=== PATIENT | female | born 1945 | race Caucasian/White ===

== ENCOUNTER 2019-02-03 21:08 | Emergency (ER) | payer MEDICARE, BC ==
[2019-02-03 21:32] VITALS: BP 107/56
[2019-02-03] MEDS ORDERED: Ibuprofen TAB* 600 MG PO ONE (21:37)
[2019-02-03] MEDS ORDERED: diPHENhydraMINE PO* 25 MG PO ONE (21:38)
--- NOTE | 2019-02-03 21:40 | UC ---
Skin Complaint HPI - HPI Summary HPI Summary: c/o bee sting to her R foot/ankle that happened today at approx 1400. she states that area is swollen and warm to the touch. Denies any itchy throat or throat swelling. - History of Current Complaint Chief Complaint: UCSkin Time Seen by Provider: 02/03/19 21:23 Stated Complaint: RIGHT FOOT BEE STING Hx Obtained From: Patient ?: No Onset/Duration: Sudden Onset, Lasting Hours Skin Exposure Onset/Duration: Hours Ago Timing: Constant Onset Severity: Mild Current Severity: Moderate Pain Intensity: 6 Location: Discrete Character: Pain, Hives, Redness, Painful Aggravating Factor(s): Touch Alleviating Factor(s): Nothing Related History: Insect Bite/Sting - Allergy/Home Medications Allergies/Adverse Reactions: Allergies Allergy/AdvReac Type Severity Reaction Status Date / Time Adhesive Tape Allergy Rash Verified 02/03/19 21:32 PMH/Surg Hx/FS Hx/Imm Hx Previously Healthy: Yes - Surgical History Surgical History: Yes Surgery Procedure, Year, and Place: CARDIAC ABLATION. VAGINAL FISTULA - Family History Known Family History: Positive: Hypertension - Social History Alcohol Use: None Substance Use Type: None Smoking Status (MU): Never Smoked Tobacco Review of Systems All Other Systems Reviewed And Are Negative: Yes Skin: Positive: Other - redness ov ankle Musculoskeletal: Positive: Arthralgia, Edema Is Patient Immunocompromised?: No Physical Exam Triage Information Reviewed: Yes Appearance: Well-Appearing, Well-Nourished, Pain Distress Vital Signs: Initial Vital Signs Temp 98.9 F 02/03/19 21:28 Pulse 79 02/03/19 21:28 Resp 18 02/03/19 21:28 BP 107/56 02/03/19 21:28 Pulse Ox 98 02/03/19 21:28 Vital Signs Reviewed: Yes Eye Exam: Normal ENT Exam: Normal Dental Exam: Normal Neck exam: Normal Respiratory Exam: Normal Respiratory: Positive: Chest non-tender, Lungs clear, Normal breath sounds Cardiovascular Exam: Normal Cardiovascular: Positive: RRR, No Murmur, Pulses Normal Abdominal Exam: Normal Musculoskeletal: Positive: Strength Intact, Edema @ - edema of the medial ankle joint Neurological Exam: Normal Psychological Exam: Normal Skin: Positive: Other - erythema of the ankle Course/Dx - Course Course Of Treatment: hx obtained, exam performed ,meds reviewed and given, - Differential Diagnoses - Skin Complaint Differential Diagnoses: Allergic Reaction, Contact Dermatitis - Diagnoses Provider Diagnosis: Allergic reaction to bee sting Discharge ED - Sign-Out/Discharge Documenting (check all that apply): Patient Departure All imaging exams completed and their final reports reviewed: No Studies - Discharge Plan Condition: Stable Disposition: HOME Patient Education Materials: General Allergic Reaction (ED) Referrals: Rodrigo Turpin MD [Primary Care Provider] - Additional Instructions: 1. take the medication as prescribed. 2. If needed starta a daily antihistamine after the presnisone is finished. 3. elevate the foot at rest 4. use the cream for itching. 5. If you develop any increased redness or swelling over the next few days follow up. 6. If you develop any respiratory symtpoms follow up in the ER. - Billing Disposition and Condition Condition: STABLE Disposition: Home
[2019-02-03] MEDS ORDERED: predniSONE TAB* 20 MG PO ONE (21:45)
== END 2019-02-03 21:55 | disposition home or self-care (01) ==
LOC: UCCORT 21:08
DX: T63.441A Toxic effect of venom of bees, accidental (unintentional), initial encounter (principal); M79.89 Other specified soft tissue disorders; Y92.9 Unspecified place or not applicable; Z91.048 Other nonmedicinal substance allergy status
CPT/HCPCS: 99213; A9270-GY; G0463; J7512

== ENCOUNTER 2019-02-24 13:19 | Emergency (ER) | payer MEDICARE, BC ==
[2019-02-24] MEDS ORDERED: methylPREDNISolone 125 MG* 2 ML VIAL IV ONE (14:24)
--- OUTSIDE RECORDS SUMMARY | 2019-02-24 14:24 | XMS REPORT | Continuity of Care Document ---
:1945 External Reference #:[id number] Author Name Rodrigo Turpin MD (transmitted by agent of provider Jarrett Mcdonald) Address [address] [place] [address] Care Team Providers Name Role Phone Rodrigo Turpin MD - Family Care Team Information State Appellate Clerk Medicine Darrel Petty MD - Otolaryngology Care Team Information State Appellate Clerk Jorge Sullivan M.D. - Neurological Care Team Information State Appellate Clerk Surgery Problems Active Problems Provider Date Neck pain Onset: 07/11/2011 Strain of rotator cuff capsule Onset: 07/11/2011 Asthma without status asthmaticus Onset: 07/11/2011 Gastroesophageal reflux disease Onset: 07/11/2011 Tick bite FERNANDO Coronel Onset: 10/23/2018 Edema FERNANDO Coronel Onset: 10/23/2018 Social History Type Date Description Comments Sex Unknown ETOH Use Rarely consumes alcohol Tobacco Use Start: Unknown Patient has never smoked Recreational Drug Use Denies Drug Use Smoking Status Reviewed: 01/16/19 Patient has never smoked Exercise Type/Frequency Exercises regularly Allergies, Adverse Reactions, Alerts Active Allergies Reaction Severity Comments Date Codeine nightmares 12/12/2013 Cefprozil 06/01/2018 Medications Active Medications SIG Qnty Indications Ordering Date Provider Cyclobenzaprine HCL 1 by mouth 45tabs M54.2 Rodrigo 02/22/2019 5mg three times a MD Dyana Tablets day Naproxen 1 by mouth 30tabs M54.2 Rodrigo 02/22/2019 500mg Tablets twice a day MD Dyana Anusol-HC use after bm 30units K64.0 Rodrigo 02/21/2018 2.5% Cream and at at MD Dyana bedtime [facility] Rodrigo 12/07/2017 Capsules MD Dyana Lysine daily prn Rodrigo 11/01/2017 500mg Tablets MD Dyana Acidophilus daily Rodrigo 11/01/2017 Lactobacillus MD Dyana Capsules Calcium Magnesium 750 1 daily Rodrigo 11/01/2017 MD Dyana 300-300mg Tablets Bromelain Jorge Sullivan, 12/07/2016 250mg Capsules Rosalba Tart Kelsey Advanced Rodrigo 12/07/2016 MD Dyana Capsules Biotect Plus Rodrigo 12/07/2016 Capsules MD Dyana Proair HFA 2 puffs every 8.500units J45.909 Rodrigo 12/07/2016 108(90Base) 4 hours as MD Dyana mcg/Act Aerosol needed Potassium Rodrigo 12/07/2016 99mg Tablets MD Dyana Vitamin C 1 tab po qd Rodrigo 12/07/2015 500mg Tablets MD Dyana Vitamin D3 1 po qd Rodrigo 08/08/2012 400Unit MD Dyana Tablets Balanced B-50 Complex Rodrigo 08/08/2012 MD Dyana Capsules Beta Carotene Unknown 56691Lgie Capsules History Medications Doxycycline Hyclate 1 by mouth 30caps S10.86xA Rodrigo Turpin, 2018 - twice a day 11/28/2018 100mg Capsules Immunizations CPT Code Status Date Vaccine Lot # [id number] Given 12/07/2016 Zoster (Zostavax) 85589 Given 05/02/2016 Fluzone High Dose 88307 Given 03/26/2014 Fluzone High Dose 38869 Given 08/09/2013 Tdap - Tetanus/Diptheria/Acellular Pertussis 89821 Given 08/09/2013 Pneumococcal Conjugate Vaccine 13 Valent For Intramuscular Use 12001 Given 08/09/2013 Fluzone High Dose 81814 Given 08/08/2011 Influenza Virus 3Yrs & Over 16064 Given 02/15/2010 Influenza Virus 3Yrs & Over 08136 Given 06/02/2009 Administration Swine Flu Shot 06752 Given 04/10/2008 Pneumonia Vaccine 28006 Given 04/10/2008 Influenza Virus 3Yrs & Over 64207 Given 04/02/2002 Influenza Virus 3Yrs & Over 64722 Given 03/02/2000 Tetanus And Diptheria (Td) For Adult Use Preservative Free Vital Signs Date Vital Result Comment 02/22/2019 11:16am Weight 153.00 lb BP Systolic 118 mmHg BP Diastolic 70 mmHg 01/16/2019 4:46pm Height 60.5 inches 5'0.50" Weight 151.00 lb Heart Rate 70 /min BP Systolic 108 mmHg BP Diastolic 60 mmHg Respiratory Rate 16 /min O2 % BldC Oximetry 97 % room air BMI (Body Mass Index) 29.0 kg/m2 Results Description No Information Available Procedures Date Code Description Status 11/28/2018 34442 EKG Tracing & Interpretation Completed 08/01/2017 [id number] Mammogram Completed Medical Devices Description No Information Available Encounters Type Date Location Provider Dx Diagnosis Office Visit 11/28/2018 [facility] FERNANDO Coronel T63.451A Toxic effect of 1:00p venom of hornets, accidental, init R00.0 Tachycardia, unspecified F41.9 Anxiety disorder, unspecified Office Visit 11/05/2018 2:45p [facility] FERNANDO Coronel L03.115 Cellulitis of Care right lower limb S80.861A Insect bite (nonvenomous), right lower leg, init encntr Office Visit 10/23/2018 10:15a [facility] FERNANDO Coronel S10.86xA Insect bite of Care other specified part of neck, init encntr R60.0 Localized edema M79.641 Pain in right hand M79.642 Pain in left hand L03.818 Cellulitis of other sites Assessments Date Code Description Provider 02/22/2019 M54.2 Cervicalgia Rodrigo Turpin MD 01/16/2019 Z00.00 Encounter for general adult medical Rodrigo Turpin MD examination without abnormal findings 11/28/2018 T63.451A Toxic effect of venom of hornets, FERNANDO Coronel accidental (unintentional) 11/28/2018 R00.0 Tachycardia, unspecified FERNANDO Coronel 11/28/2018 F41.9 Anxiety disorder, unspecified FERNANDO Coronel 11/05/2018 L03.115 Cellulitis of right lower limb FERNANDO Coronel 11/05/2018 S80.861A Insect bite (nonvenomous), right lower [place], [place] leg, initial encounte 10/23/2018 S10.86xA Insect bite of other specified part of FERNANDO Coronel neck, initial encount 10/23/2018 R60.0 Localized edema FERNANDO Coronel 10/23/2018 M79.641 Pain in right hand FERNANDO Coronel 10/23/2018 M79.642 Pain in left hand FERNANDO Coronel 10/23/2018 L03.818 Cellulitis of other sites FERNANDO Coronel Plan of Treatment Future Appointment(s):03/07/2019 3:45 pm - Rodrigo Turpin MD at [facility]02/22/2019 - Rodrigo Turpin MDM54.2 CervicalgiaNew Medication: Cyclobenzaprine HCL 5 mg - 1 by mouth three times a dayNaproxen 500 mg - 1 by mouth twice a day Functional Status Description No Information Available Mental Status Description No Information Available Referrals Description No Information Available
[2019-02-24] MEDS ORDERED: DOXYcycline CAP(*) 100 MG PO ONE (14:29)
[2019-02-24] MEDS ORDERED: Acetaminophen TAB* 325 MG PO ONE (14:30)
[2019-02-24] MEDS ORDERED: Carboxymethylcellulose/Glyceri 10 ML OPHTH.GEL lubricant eye gel LEFT EYE ONE (14:43)
[2019-02-24 14:48] LABS: ABS Eosinophils 0.2 10^3/ul (0-0.6); ABS Lymphocytes 1.2 10^3/ul (1.0-4.8); ABS Monocytes 0.4 10^3/ul (0-0.8); ABS Neutrophils 2.3 10^3/ul (1.5-7.7); Eosinophil % 5.2 %; Hematocrit 39 % (35-47); Hemoglobin 13.6 g/dL (12.0-16.0); Lymphocyte % 28.8 %; Mean Corpuscular HGB Conc 35 g/dL (31-36); Mean Corpuscular Hemoglobin 32 pg (27-31); Mean Corpuscular Volume 91 fL (80-97); Mean Platelet Volume 6.8 fL (7.4-10.4); Nucleated Red Blood Cells % 0.1; Platelet Count 236 10^3/uL (150-450); Red Blood Count 4.31 10^6 /uL (3.70-4.87); Red Cell Distribution Width 14 % (10-15); White Blood Count 4.2 10^3/uL (3.5-10.8)
[2019-02-24 14:54] LABS: INR 0.96 (0.82-1.09)
--- NOTE | 2019-02-24 14:59 | ED ---
Neurological HPI - HPI Summary HPI Summary: The pt is a 74 yr old female presenting to [facility] via EMS c/o neurological deficits beginning 1100 this date. She notes that earlier this morning @ 1100 she was talking to her daughter over the phone when she began having trouble formulating some words. The pt also mentions that her words have been slurred since this morning and that when she attempted to drink water her left lip was crooked and some of the liquid spilled out of her mouth. In the room she mentions that she feels like her speech is back to normal and that she has no problem finding words. The pt mentions that she had her carotid arteries checked with an ultrasound about 2 [address] Dr. Vaca in [place]. She also believes that she was treated for lung disease in [place] 01/14. She rates her current pain severity due to her headache a 5/10. No aggravating or alleviating factors noted. She also reports some headache, right neck pain, tingling/numbness to the left side of her face and left arm, and seeing blackness in her field of view that does not last and that she can see through. 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 She has no hx of cold sores. Vital signs while in the room: HR:64, BP: 121/58, O2 Sat: 97 %. Allergies Allergy/AdvReac Type Severity Reaction Status Date / Time Adhesive Tape Allergy Rash Verified 02/03/19 21:32 Home Medications Medication Instructions Recorded Confirmed Type Ascorbic Acid TAB* [Vitamin C 500 mg PO DAILY 02/24/19 02/24/19 History TAB*] Beta-Carotene [Beta Carotene] 25,000 unit PO DAILY 02/24/19 02/24/19 History Bromelains [Pineapple Extract] 100 mg PO DAILY 02/24/19 02/24/19 History Calcium Carb,Gluc/Mag Ox,Gluc 1 each PO DAILY 02/24/19 02/24/19 History [Calcium Magnesium Caplet] DOXYcycline CAP(*) [DOXYcycline 100 mg PO BID #42 cap 02/24/19 Rx 100MG CAP(*)] Lysine 500 mg PO DAILY 02/24/19 02/24/19 History Sour Kelsey Extract [Tart Kelsey 1,000 mg PO DAILY 02/24/19 02/24/19 History Extract] Vitamin B Complex TAB* [B 1 tab PO DAILY 02/24/19 02/24/19 History Complex-50*] Vitamin E 200 unit PO DAILY 02/24/19 02/24/19 History methylPREDNISolone [Medrol Dosepak 4 mg PO .SEE MARISELA INSTRUCTION #1 tab 02/24/19 Rx 4 MG*] - History of Current Complaint Chief Complaint: EDNeurologicalDeficit Stated Complaint: RULE OUT CVA PER EMS Time Seen by Provider: 02/24/19 13:49 Hx Obtained From: Patient, EMS Onset/Duration: Sudden Onset, Started hours ago, Resolved Timing: Sudden Onset Onset Severity: Moderate Current Severity: Moderate Neurological Deficit Location: Generalized - trouble finding her words, and trouble with speech, and dark areas in her vision that aren't reproducible, Facial - left facial droop Headache Location: Diffuse (Right), Occipital (Right), Occipital (Left) Pain Intensity: 5 Pain Scale Used: 0-10 Numeric Character: Numbness/Tingling - left face, Impaired Speech, Visual Changes - dark spots in her vision that come and go Aggravating: Nothing Alleviating: Nothing Associated Signs and Symptoms: Positive: Visual Changes - seeing black areas in her vision that come and go and aren't reproducible, Headache, Impaired Speech, Neck Pain/Stiffness 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, low NIH - Allergy/Home Medications Allergies/Adverse Reactions: Allergies Allergy/AdvReac Type Severity Reaction Status Date / Time Adhesive Tape Allergy Rash Verified 02/03/19 21:32 Home Medications: Home Medications Ascorbic Acid TAB* [Vitamin C TAB*] 500 mg PO DAILY 02/24/19 [History Confirmed 02/24/19] Beta-Carotene [Beta Carotene] 25,000 unit PO DAILY 02/24/19 [History Confirmed 02/24/19] Bromelains [Pineapple Extract] 100 mg PO DAILY 02/24/19 [History Confirmed 02/24] Calcium Carb,Gluc/Mag Ox,Gluc [Calcium Magnesium Caplet] 1 each PO DAILY [History Confirmed 02/24/19] Lysine 500 mg PO DAILY 02/24/19 [History Confirmed 02/24/19] Sour Kelsey Extract [Tart Kelsey Extract] 1,000 mg PO DAILY 02/24/19 [History Confirmed 02/24/19] Vitamin B Complex TAB* [B Complex-50*] 1 tab PO DAILY 02/24/19 [History Confirmed 02/24/19] Vitamin E 200 unit PO DAILY 02/24/19 [History Confirmed 02/24/19] PMH/Surg Hx/FS Hx/Imm Hx Previously Healthy: Yes Endocrine/Hematology History: Denies: Hx Diabetes Cardiovascular History: Denies: Hx Hypertension, Hx Pacemaker/ICD History: Denies: Hx Renal Disease Sensory History: Denies: Hx Hearing Aid Opthamlomology History: Reports: Hx Vision Problem - vitreal detachment Psychiatric History: Denies: Hx Panic Disorder - Surgical History Surgical History: Yes Surgery Procedure, Year, and Place: CARDIAC ABLATION. VAGINAL FISTULA Infectious Disease History: No Infectious Disease History: Denies: Traveled Outside the [place] in Last 30 Days - Family History Known Family History: Positive: Hypertension - Social History Alcohol Use: None Substance Use Type: Reports: None Smoking Status (MU): Never Smoked Tobacco Review of Systems Eyes: Other - pos - seeing "black" , not persistent, not reproducible Cardiovascular: Negative Respiratory: Negative Gastrointestinal: Negative Positive: no symptoms reported Musculoskeletal: Other - pos - right neck pain Skin: Negative Neurological: Other - pos - left lip "crooked", tingling/numbness in left face/ arm Positive: Headache, Slurred Speech - resolved Psychological: Normal All Other Systems Reviewed And Are Negative: Yes Physical Exam - Summary Physical Exam Summary: Appearance: well-appearing, minimal pain distress due to right neck pain and occipital headache, well-nourished Skin: Warm, color reflects adequate perfusion, dry Head: left facial droop, atraumatic, decreased forehead creases on left, but not completely absent Eyes: Conjunctiva clear, PERRL, EOMI, no nystagmus, left eye doesnt close fully ENT: Dry oral mucosa Neck: Supple, no nodes, no JVD, no carotid bruits Respiratory: Lungs clear, normal breath sounds, no respiratory distress Cardio: RRR, No murmur, pulses normal, brisk capillary refill Abdomen: Soft, nontender Bowel sounds: Present Musculoskeletal: Strength Intact/ROM intact, no calf tenderness, no edema. Psychological: Normal Neuro: Alert, muscle tone normal, no focal deficit, A&O x3, left eye doesnt close completely, peripheral lawrence intact by confrontation, although pt describes a moving black spot intermittently, left facial droop, motor function 5/5, sensation intact to light touch, extinction normal, heel to castellanos normal, cerebellar normal, see NIH scale. Triage Information Reviewed: Yes Vital Signs On Initial Exam: Initial Vitals Temp Pulse Resp BP Pulse Ox 99.9 F 64 17 121/58 97 02/24/19 13:31 02/24/19 13:31 02/24/19 13:31 02/24/19 13:31 02/24/19 13:31 Vital Signs Reviewed: Yes Procedures - Sedation Patient Received Moderate/Deep Sedation with Procedure: No Diagnostics - Vital Signs Vital Signs Temp Pulse Resp BP Pulse Ox 02/24/19 13:31 99.9 F 64 17 121/58 97 - Laboratory Lab Results: Lab Results 02/24/19 Range/Units 14:38 WBC 4.2 (3.5-10.8) 10^3/uL RBC 4.31 (3.70-4.87) 10^6 /uL Hgb 13.6 (12.0-16.0) g/dL Hct 39 (35-47) % MCV 91 (80-97) fL MCH 32 H (27-31) pg MCHC 35 (31-36) g/dL RDW 14 (10-15) % Plt Count 236 (150-450) 10^3/uL MPV 6.8 L (7.4-10.4) fL Neut % (Auto) 54.6 % Lymph % (Auto) 28.8 % Maury % (Auto) 10.5 % Eos % (Auto) 5.2 % Baso % (Auto) 0.9 % Absolute Neuts (auto) 2.3 (1.5-7.7) 10^3/ul Absolute Lymphs (auto) 1.2 (1.0-4.8) 10^3/ul Absolute Monos (auto) 0.4 (0-0.8) 10^3/ul Absolute Eos (auto) 0.2 (0-0.6) 10^3/ul Absolute Basos (auto) 0.0 (0-0.2) 10^3/ul Absolute Nucleated RBC 0.0 10^3/ul Nucleated RBC % 0.1 Result Diagrams: 02/24/19 14:38 02/24/19 14:38 Lab Statement: Any lab studies that have been ordered have been reviewed, and results considered in the medical decision making process. NIH Scale - NIH Scale Level of Consciousness: Alert/Keenly Responsive Ask Patient the Month and His/Her Age: Both Correct Ask Pt to Open/Close Eyes and Permit Agent/Release Non-Paretic Hand: One Correctly - left eye doesn't close fully Best Gaze (Only Horizontal Eye Movement): Normal Visual Field Testing: No Visual Loss Facial Paresis-Pt to Smile & Close Eyes or Grimace Symmetry: Minor Paralysis Motor Function - Right Arm: No Drift-Holds 10 Seconds Motor Function - Left Arm: No Drift-Holds 10 Seconds Motor Function - Right Leg: No Drift-Holds 10 Seconds Motor Function - Left Leg: No Drift-Holds 10 Seconds Limb Ataxia-Must be out of Proportion to Weakness Present: Absent Sensory (Use Pinprick to Test Arms/Legs/Trunk/Face): Normal Best Language (Describe Picture, Name Items): No Aphasia Dysarthria (Read Several Words): Normal Extinction and Inattention: No Abnormality Total Score: 2 Re-Evaluation - Re-Evaluation First Eval Re-Evaluation Time: 14:30 Change: Unchanged Comment: discussed dx Nava's palsy and treatment with pt. Will draw labs and initiate steroids, doxycycline to start treatment for Lyme disease, and eye lubricant. Second Eval Re-Evaluation Time: 16:30 Change: Unchanged Comment: Discussed discharge and treatment plan. Pt is agreeable to discharge. Course/Dx - Course Course Of Treatment: The pt is a 74 yr old female presenting to [facility] via EMS c/ o neurological deficits beginning 1100 this date. 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 Alexander. Test results are normal except for MCH 32, MPV 6.8, BUN 34, BUN/Creatinine 50.7, and Total Protein 6.3. Lyme serologies are pending at the time of discharge. Lyme testing done as pt stated possible exposure and Lyme disease could cause a Nava's palsy. In the ED course the pt was given 650 mg Tylenol, 1 application left eye Refresh Optive Gel, 100 mg doxycycline to initiate treatment for possible Lyme disease, 125 mg Solu-Medrol, and 2000 mls fluids. Care was discussed with Dr. Alexander, considering addition of antiviral such as acyclovir to pt's Nava's palsy treatments. Pt has no hx of "cold sores", so decision is to hold on antivirals at this time, and continue with prednisone and doxycycline. Final Dx are [place] Palsy and possible Lyme Disease. Pt is advised that the neurodeficit with Nava' s palsy can last weeks to months, in fact, indefinitely. She is also advised that there is physical therapy for Nava's Palsy. Pt is given strict instructions to protect her left eye with moisturizing liquid and to patch it closed while sleeping. Pt will be discharged home with Dr. Rodrigo Turpin for follow up. Pt is agreeable with this plan. - Differential Dx Differential Diagnoses Neuro: Positive: Nava's Palsy, Cerebrovascular Accident, Transient Ischemic Attack, Viral Syndrome - Diagnoses Provider Diagnoses: Lyme disease, Nava's palsy - Physician Notifications Discussed Care Of Patient With: Omi Alexander Time Discussed With Above Provider: 14:10 Instructed by Provider To: Other - He agrees that pt's presentation and exam are consistent with Nava's palsy. Advises steroids, eye lubricant, testing and treatment for Lyme disease with doxycycline, no need for antiviral at this time in pt with no hx cold sores. Discharge ED - Sign-Out/Discharge Documenting (check all that apply): Patient Departure - discharge Patient Received Moderate/Deep Sedation with Procedure: No - Discharge Plan Condition: Stable Disposition: HOME Prescriptions: DOXYcycline CAP(*) [DOXYcycline 100MG CAP(*)] 100 mg PO BID #42 cap methylPREDNISolone [Medrol Dosepak 4 MG*] 4 mg PO .SEE MARISELA INSTRUCTION #1 tab Patient Education Materials: Lyme Disease (ED), Nava Palsy (ED) Referrals: Rodrigo Turpin MD [Primary Care Provider] - 2 Days Additional Instructions: We believe that you lip symptoms and your eye symptoms are due to a Nava's palsy , which could be due to Lyme disease. We will treat the Nava's palsy with steroids. The first dose was given in your IV in the ER, SoluMedrol 125mg IV. We tested you for Lyme disease also, but these results will not come back today , so be sure that Dr. Turpin checks these results. We have started you on treatment for Lyme disease because it may be causing the Nava's palsy, and we want to give every chance for the Nava's palsy to improve. We discussed your care with a neurologist, Dr. Alexander who is installation technician today. Very importantly you will need to protect your left eye from getting an abrasion from getting too dry because you are not going to be able to fully close your left eye due to the Nava's palsy. You will need to use moisturizing eye drops or gel to keep the eye lubricated, and you will need to patch your left eye when you are sleeping so it will be fully closed when you sleep. We have not started you on the antiviral treatment Valtrex or valacylovir as a treatment for the Nava's palsy because you do not have a hx of cold sores. You may discuss this with Dr. Turpin if he wants to treat with this medication also. Take your medications as prescribed. Please return to the ER if you have any new or worsening symptoms. - Billing Disposition and Condition Condition: STABLE Disposition: Home - Attestation Statements Document Initiated by Symone: Yes Documenting Scribe: Felix Wiseman Provider For Whom Symone is Documenting (Include Credential): Audrey Lazar MD Scribe Attestation: Felix Chase, scribed for Audrey Lazar MD on 03/18/19 at 2245. Scribe Documentation Reviewed: Yes Provider Attestation: The documentation as recorded by the Felix morales accurately reflects the service I personally performed and the decisions made by me, Audrey Lazar MD Status of Scribe Document: Viewed
[2019-02-24 15:05] LABS: Albumin 3.7 g/dL (3.2-5.2); Albumin/Globulin Ratio 1.4 (1-3); BUN/Creatinine Ratio 50.7 (8-20); Calcium 9.2 mg/dL (8.6-10.3); EGFR African American 104.4 (>60); EGFR Non-African American 86.3 (>60); Globulin 2.6 g/dL (2-4); Total Bilirubin 0.3 mg/dL (0.2-1.0); Total Protein 6.3 g/dL (6.4-8.9)
[2019-02-24] MEDS: NS 0.9% 1000 ML** 2,000 ML IV ONE (15:16)
[2019-02-24 17:04] VITALS: BP 113/57
== END 2019-02-24 16:50 | disposition home or self-care (01) ==
LOC: ED 13:19
DX: G51.0 Bell's palsy (principal); A69.20 Lyme disease, unspecified; Z79.899 Other long term (current) drug therapy
CPT/HCPCS: 36415; 80053; 85025; 85610; 86618; 96361; 96374; 99282; A9270-GY; J2930